=== PATIENT | female | born 1980 | race Caucasian/White ===

== ENCOUNTER → 2017-06-23 | Outpatient (CLI) | payer BC ==
[~2017-06-23] MED LIST: CYAN3INJ; FRRS300 PO
[2017-06-23 17:55] LABS: BASO % 0.4 %; BASO ABS # 0.03 K/uL (0-0.2); EOS % 1.3 %; HEMATOCRIT 38.4 % (37-47); HEMOGLOBIN 12.8 g/dL (12.0-16.0); IG# 0.01 K/uL (0.00-0.02); LYMPH ABS # 1.43 K/uL (1.2-3.4); MEAN CORPUSCULAR HGB CONC 33.3 g/dl (32-36); MEAN PLATELET VOLUME 11.1 fL (7.4-10.4); NEUT % 75.2 %; NEUT ABS # 5.98 K/uL (1.4-6.5); PLATELET COUNT 257 K/uL (130-400); RED CELL DISTRIBUTION WIDTH CV 13.2 % (11.5-14.5); RED CELL DISTRIBUTION WIDTH SD 45.7 fL (36.4-46.3); WHITE BLOOD COUNT 7.95 K/uL (4.8-10.8)
[2017-06-23 18:22] LABS: ALBUMIN 3.8 gm/dl (3.4-5.0); ALT/SGPT 30 U/L (12-78); AST/SGOT 12 U/L (15-37); BLOOD UREA NITROGEN 11 mg/dl (7-18); CALCIUM 8.8 mg/dl (8.5-10.1); CARBON DIOXIDE 22 mmol/L (21-32); CHOLESTEROL 145 mg/dl (0-200); CREATININE 0.69 mg/dl (0.60-1.20); GLUCOSE 85 mg/dl (70-99); POTASSIUM 3.5 mmol/L (3.5-5.1); SODIUM 141 mmol/L (136-145)
[2017-06-23 18:31] LABS: ALKALINE PHOSPHATASE 72 U/L (45-117); LDL CHOLESTEROL CALCULATED 72 mg/dl; TOTAL PROTEIN 7.4 gm/dl (6.4-8.2); TRANSFERRIN 183 mg/dl (200-360)
== END | disposition home or self-care (01) ==
LOC: C.LABMFLN 12:16
PROVIDERS: ATTEND Physician Assistant
DX: Z13.220 Encounter for screening for lipoid disorders (principal); F41.8 Other specified anxiety disorders; Z98.84 Bariatric surgery status